=== PATIENT | male | born 1985 | race Two or more races ===

== ENCOUNTER 2024-06-01 10:55 | Emergency (ER) | payer MEDICAID ==
[~2024-06-01] VITALS: Ht 167.6 cm; Wt 135.9 kg
[2024-06-01 11:58] LABS: Chloride 108 mmol/L (98-107); Potassium 3.9 mmol/L (3.5-5.1); Sodium 139 mmol/L (136-145)
[2024-06-01 11:59] LABS: Basophils # (auto) 0.1 10 ^3/uL (0-0.2); Basophils % (auto) 0.8 % (0.0-2.0); Eosinophils # (auto) 0.1 10 ^3/uL (0-0.8); Eosinophils % (auto) 1.4 % (0.0-7.0); Hematocrit 43.9 % (41.0-53.0); Hemoglobin 15.6 g/dL (13.5-17.5); Lymphocytes # (auto) 1.9 10 ^3/uL (0.4-5.4); Lymphocytes % (auto) 25.8 % (10.0-50.0); Mean Corpuscular Hemoglobin 30.3 pg (28.0-32.0); Mean Corpuscular Hgb Conc. 35.6 g/dL (32.0-36.0); Mean Corpuscular Volume 85.3 fL (80.0-100.0); Monocytes # (auto) 0.4 10 ^3/uL (0-1.3); Monocytes % (auto) 5.9 % (0.0-12.0); Neutrophils # (auto) 4.8 10 ^3/uL (1.6-8.6); Neutrophils % (auto) 66.1 % (37.0-80.0); Nucleated Red Blood Cells % 0.1 %; Red Blood Cells 5.15 10^6/uL (4.5-5.90); Red Cell Distribution Width 13.7 % (11.8-14.3); White Blood Cell 7.3 10^3/uL (4.4-10.8)
[2024-06-01 12:00] LABS: Anion Gap 7 (5-15); Calcium 9.4 mg/dL (8.7-10.4); Carbon Dioxide 24 mmol/L (20-30)
[2024-06-01 12:05] LABS: BUN/Creatinine Ratio 11.3 (10.0-20.0); Blood Urea Nitrogen 9 mg/dL (9-23); Glucose 121 mg/dL (74-106)
[2024-06-01] MEDS: LIDOCAINE VISCOUS 2% 15ML UD PO ONE (12:42)
[2024-06-01] MEDS: MAALOX PLUS or MAALOX 30 ML PO ONE (12:42)
[2024-06-01 12:43] VITALS: BP 120/72; PULSE 111; RESP 17; TEMP 98.7; O2SAT 95
[2024-06-01] MEDS: DONNATAL 5ml ORAL Elix (BELLADONNA ALK-PHENOBARB) PO ONE (12:43)
[2024-06-01] MEDS ORDERED: PANT40TA2 PO (14:26)
== END 2024-06-01 14:38 | disposition home or self-care (01) ==
LOC: ER 10:55
DX: K29.00 Acute gastritis without bleeding (principal); Z88.5 Allergy status to narcotic agent
CPT/HCPCS: 36415; 80048; 85025